=== PATIENT | male | born 2000 | race Asian ===

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

== ENCOUNTER 2019-03-04 17:02 | Emergency (ER) | payer OTHER ==
--- NOTE | 2019-03-04 17:30 | ED ---
Throat Pain/Nasal Congestion - HPI Summary HPI Summary: This pt is a 18 y/o male presenting to [facility] c/o broken permanent retainer in mouth today. Pt reports his permanent retainer located on his bottom teeth broke. He states he is unable to eat secondary to the broken piece. He denies any other symptoms. Denies fever or chills. No PMHx. - History of Current Complaint Chief Complaint: EDDentalPain Time Seen by Provider: 03/04/19 17:23 Hx Obtained From: Patient Onset/Duration: Lasting Days, Still Present Severity: Moderate Associated Signs And Symptoms: Positive: Negative Cough: None Related History: Other (Noted In Comments) - wearing permanent retainers - Allergies/Home Medications Allergies/Adverse Reactions: Allergies Allergy/AdvReac Type Severity Reaction Status Date / Time No Known Allergies Allergy Verified 03/25/18 00:26 Home Medications: Home Medications NK [No Home Medications Reported] 03/04/19 [History Confirmed 03/04/19] PMH/Surg Hx/FS Hx/Imm Hx Endocrine/Hematology History: Denies: Hx Anticoagulant Therapy Cardiovascular History: Denies: Hx Cardiac Arrest History: Denies: Hx Dialysis Comment Only: Other Problems/Disorders - Patient born with one kidney Sensory History: Denies: Hx Contacts or Glasses, Hx Hearing Aid Opthamlomology History: Denies: Hx Contacts or Glasses Neurological History: Denies: Hx CVA - Immunization History Date of Influenza Vaccine: 01/2018 Infectious Disease History: No Infectious Disease History: Denies: Traveled Outside the [place] in Last 30 Days - Family History Known Family History: Positive: Non-Contributory - Social History Alcohol Use: None Substance Use Type: Reports: None Smoking Status (MU): Never Smoked Tobacco Review of Systems Negative: Fever, Chills ENT: Other - POSITIVE: broken retainer Cardiovascular: Negative Respiratory: Negative Gastrointestinal: Negative All Other Systems Reviewed And Are Negative: Yes Physical Exam - Summary Physical Exam Summary: VITAL SIGNS: Reviewed. GENERAL: Patient is a well-developed and nourished male. Patient is not in any acute respiratory distress. HEAD AND FACE: No signs of trauma. No ecchymosis, hematomas or skull depressions. No sinus tenderness. EYES: PERRLA, EOMI x 2, No injected conjunctiva, no nystagmus. EARS: Hearing grossly intact. Ear canals and tympanic membranes are within normal limits. MOUTH: Oropharynx within normal limits. Broken retainer piece. NECK: Supple, trachea is midline, no adenopathy, no JVD, no carotid bruit, no c- spine tenderness, neck with full ROM. CHEST: Symmetric, no tenderness at palpation. LUNGS: Clear to auscultation bilaterally. No wheezing or crackles. CVS: Regular rate and rhythm, S1 and S2 present, no murmurs or gallops appreciated. ABDOMEN: Soft, non-tender. No signs of distention. No rebound, no guarding, and no masses palpated. Bowel sounds are normal. EXTREMITIES: FROM in all major joints, no edema, no cyanosis or clubbing. NEURO: Alert and oriented x 3. No acute neurological deficits. Speech is normal and follows commands. SKIN: Dry and warm. Triage Information Reviewed: Yes Vital Signs On Initial Exam: Initial Vitals Temp Pulse Resp BP Pulse Ox 97.6 F 61 17 118/80 99 03/04/19 17:10 03/04/19 17:10 03/04/19 17:10 03/04/19 17:10 03/04/19 17:10 Vital Signs Reviewed: Yes Procedures - Sedation Patient Received Moderate/Deep Sedation with Procedure: No Diagnostics - Vital Signs Vital Signs Temp Pulse Resp BP Pulse Ox 03/04/19 17:10 97.6 F 61 17 118/80 99 - Laboratory Lab Statement: Any lab studies that have been ordered have been reviewed, and results considered in the medical decision making process. Re-Evaluation - Re-Evaluation First Eval Re-Evaluation Time: 17:36 Comment: I clipped about 0.5 cm off the broken permanent retainer. EENT Course/Dx - Course Assessment/Plan: This pt is a 18 y/o male presenting to [facility] c/o broken permanent retainer in mouth today. Pt reports his permanent retainer located on his bottom teeth broke. He states he is unable to eat secondary to the broken piece. He denies any other symptoms. Denies fever or chills. No PMHx. I was able to remove a small piece of the permanent broken retainer. Now the patient is feeling better. The patient reports that he is able to eat. Therefore the patient will be discharged home with follow-up from his dentist. I discussed all the findings and test results with the patient. Patient was instructed to return to the emergency room immediately if any of the symptoms return worsens. Plan of care was discussed with the patient and understands and agrees. All questions were answered at patient satisfaction. There were no further complaints or concerns. Lung exam before discharge: CTA B/L. Good air exchange. No wheezing or crackles heard. CVS: S1 and S2 present. No murmurs appreciated. Patient is alert and oriented x 3. Patient is hemodynamically stable. Patient will be discharged home with follow up from his PCP in the next 2-3 days. - Diagnoses Provider Diagnoses: Foreign body Discharge ED - Sign-Out/Discharge Documenting (check all that apply): Patient Departure - Discharge home - Discharge Plan Condition: Stable Disposition: HOME Referrals: Care [facility] [Outside] Additional Instructions: Follow up with your dentist. RETURN TO THE ED FOR ANY WORSENING OR NEW SYMPTOMS. - Billing Disposition and Condition Condition: STABLE Disposition: Home - Attestation Statements Document Initiated by Earl: Yes Documenting Scribe: Marilyn Pratt Provider For Whom Earl is Documenting (Include Credential): Brant Barnett MD Scribe Attestation: Marilyn Rashid scribed for Brant Barnett MD on 03/04/19 at 1831. Scribe Documentation Reviewed: Yes Provider Attestation: The documentation as recorded by the Marilyn felix accurately reflects the service I personally performed and the decisions made by , Brant Barnett MD Status of Scribe Document: Viewed
[2019-03-04 18:00] VITALS: BP 121/74
== END 2019-03-04 17:56 | disposition home or self-care (01) ==
LOC: ED 17:02
DX: K08.89 Other specified disorders of teeth and supporting structures (principal)
CPT/HCPCS: 99281